=== PATIENT | female | born 1960 | race African-American/Black ===

== ENCOUNTER 2019-01-10 15:08 | Inpatient (IN) | payer SELFPAY ==
[~2019-01-10] VITALS: Ht 177.8 cm; Wt 90.3 kg
--- NOTE | 2019-01-10 15:11 | NUR ---
GERARD FROM HOME C/O DIZZINESS AND LIGHT HEADEDNESS STARTED LAST NIGHT, SEEN AT URGENT CARE. TO ER BED 9, HOOKED TO MONITOR, CHANGED TO HOSPITAL GOWN, AWAITING MD HOPPER
--- NOTE | 2019-01-10 15:27 | NUR ---
DR XIE AT BEDSIDE
[2019-01-10] MEDS ORDERED: MECLIZINE HCL 25 MG TABLET PO ONE (15:30)
[2019-01-10] MEDS ORDERED: PANTOPRAZOLE 40 MG VIAL IV ONE (15:30)
[2019-01-10] MEDS ORDERED: ONDANSETRON HCL/PF - ER 4 MG/2 ML VIAL IV ONE (15:30)
[2019-01-10] MEDS ORDERED: PANTOPRAZOLE 40 MG VIAL ONE (15:37)
[2019-01-10] MEDS ORDERED: MECLIZINE HCL 25 MG TABLET ONE (15:37)
[2019-01-10] MEDS ORDERED: ONDANSETRON HCL/PF 4 MG/2 ML VIAL ONE (15:37)
[2019-01-10 15:40] LABS: BASOPHILS % (AUTO) 0.8 % (0.0-2.0); EOSINOPHILS % (AUTO) 4.2 % (0.0-6.0); HEMATOCRIT 32 % (33-45); HEMOGLOBIN 10.5 g/dL (11.5-14.8); LYMPHOCYTES # (AUTO) 1.5 /CMM (0.8-4.8); LYMPHOCYTES % (AUTO) 28.2 % (20.0-44.0); MEAN CORPUSCULAR HGB CONC 33 g/dl (31.0-36.0); MEAN CORPUSCULAR VOLUME 100 fL (82-100); MONOCYTES # (AUTO) 0.3 /CMM (0.1-1.30); MONOCYTES % (AUTO) 5.1 % (2.0-12.0); NEUTROPHILS # (AUTO) 3.2 /CMM (1.8-8.9); NEUTROPHILS % (AUTO) 61.7 % (43.0-81.0); PLATELET COUNT (AUTO) 295 /CMM (150-450); WHITE BLOOD COUNT (AUTO) 5.2 K/uL (4.3-11.0)
--- NOTE | 2019-01-10 15:45 | NUR ---
FUNDING COORDINATOR AT BEDSIDE
[2019-01-10 16:20] LABS: CALCIUM, SERUM 8.9 mg/dL (8.5-10.1); CREATININE 1.4 mg/dL (0.6-1.3)
[2019-01-10 16:26] LABS: ALBUMIN 4.1 g/dL (3.4-5.0); BILIRUBIN,TOTAL 0.6 mg/dL (0.2-1.0); TOTAL PROTEIN, SERUM 7.9 g/dL (6.4-8.2)
[2019-01-10] MEDS ORDERED: METOCLOPRAMIDE HCL 10 MG/2 ML VIAL IV ONE (18:30)
[2019-01-10] MEDS ORDERED: ESCI10TA PO (18:35)
[2019-01-10] MEDS ORDERED: NEBI5TAB8 PO (18:35)
[2019-01-10] MEDS ORDERED: METOCLOPRAMIDE HCL 10 MG/2 ML VIAL ONE (18:36)
--- NOTE | 2019-01-10 19:15 | NUR ---
CALLED EITAN BONILLA PAGED
--- NOTE | 2019-01-10 19:23 | NUR ---
LUCITA LAIRD AT BEDSIDE
--- NOTE | 2019-01-10 19:33 | NUR ---
CALLED NURSING SUP FOR BED
--- NOTE | 2019-01-10 19:34 | NUR ---
REPORT GIVEN TO YUNIOR DE JESUS RN FOR KYM
[2019-01-10] MEDS ORDERED: ONDANSETRON HCL/PF 4 MG/2 ML VIAL IVP PRN (20:00)
[2019-01-10] MEDS ORDERED: HYDROCODONE/APAP 5/325MG 1 EACH TABLET PO PRN (20:00)
[2019-01-10] MEDS ORDERED: MORPHINE SULFATE INJ 2 MG/ML DISP.SYRIN IV PRN (20:00)
[2019-01-10] MEDS ORDERED: TEMAZEPAM 7.5 MG CAPSULE PO PRN (20:00)
[2019-01-10] MEDS ORDERED: ACETAMINOPHEN 325 MG TABLET PO PRN (20:00)
[2019-01-10] MEDS ORDERED: MAG HYDROX/AL HYDROX/SIMETH 30 ML UDC PO PRN (20:00)
--- NOTE | 2019-01-10 20:28 | NUR ---
REPORT GIVEN TO VERENICE CASEY FOR KYM.
[2019-01-10 21:00] VITALS: BP 154/90
--- NOTE | 2019-01-10 21:00 | NUR ---
IT SYSTEMS ADMINISTRATORSOFT METALS HAND ENGRAVER NOTES PATIENT CAME TO UNIT FROM ER VIA GURNEY, ACCOMPANIED BY 2 ER STAFF AND FAMILY MEMBERS. PATIENT IS ALERT, ORIENTED X 4. BREATHING EVEN AND UNLABORED. NOT IN ANY DISTRESS, SATURATING AT 98% ON ROOM AIR. IV ACCESS ON RAC G#18 INTACT AND PATENT, NO SIGNS OF INFILTRATION NOTED. TELE MONITOR IN PLACE- SINUS RHYTHM 70. PATIENT HAS NO SKIN ISSUES. BELONGINGS ACCOUNTED FOR BY ASSIGNED HUMAN RESOURCES COMPLIANCE MANAGER. ORIENTED TO CALL LIGHT- PLACED WITHIN EASY REACH. BED IN LOW, LOCKED POSITION. WILL CONTINUE TO MONITOR ACCORDINGLY.
[2019-01-10] MEDS: IV NS 0.9% 1,000 ML IV PRN (21:10)
[2019-01-10] MEDS: MECLIZINE HCL 12.5 MG TABLET PO SCH (21:21)
--- NOTE | 2019-01-10 23:00 | NUR ---
RN NOTES PATIENT C/O RIGHT SIDE ABDOMEN PAIN, 09/13. NORCO 5/325 GIVEN ORDERED. WILL CONTINUE TO MONITOR
[2019-01-10 23:51] VITALS: BP 132/83
[2019-01-11] MEDS ORDERED: PIPERACILLIN /TAZOBACTAM 3.375 G in IV D5W 50 ML IV SCH ×2
--- NOTE | 2019-01-11 01:15 | NUR ---
RN NOTES URINE SAMPLE OBTAINED
[2019-01-11 04:00] VITALS: BP 126/84
[2019-01-11 05:54] LABS: APPEARANCE,URINE CLOUDY (CLEAR); BILIRUBIN,URINE NEGATIVE (NEGATIVE); BLOOD, URINE TRACE-INTA Ery/uL (NEGATIVE); COLOR,URINE YELLOW (YELLOW); KETONES,URINE NEGATIVE (NEGATIVE); LEUKOCYTE ESTERASE ,URINE NEGATIVE (NEGATIVE); NITRITE, URINE NEGATIVE (NEGATIVE); PROTEIN,URINE 30 mg/dl (NEGATIVE); UGLUCOSE NEGATIVE (NEGATIVE); UROBILINOGEN,URINE 0.2 EU/dL (0.2)
[2019-01-11 06:01] LABS: BACTERIA,URINE Moderate /HPF (None Seen); RBC,URINE 0-2 /HPF (0-2); SQUAMOUS EPITHELIAL CELL,UR Few /HPF (None Seen); URINE AMORPHOUS URATE Many /HPF (None Seen); WBC,URINE 0-2 /HPF (0-3)
--- NOTE | 2019-01-11 06:23 | NUR ---
OPHTHALMIC PHOTOGRAPHER CLOSING NOTES PATIENT RESTING IN BED, ALERT, ORIENTED X 4. BREATHING EVEN AND UNLABORED. NOT IN ANY DISTRESS, SATURATING WELL. PERIPHERAL IV INFUSING AT 80ML/HR. TELE MONITOR IN PLACE- SINUS RHYTHM 69. NO COMPLAINTS AT THIS TIME. ALL NEEDS ATTENDED TO. CALL LIGHT WITHIN EASY REACH. BED IN LOW, LOCKED POSITION. WILL ENDORSE KYM TO ONCOMING RN
[2019-01-11 06:27] LABS: BASOPHILS % (AUTO) 0.1 % (0.0-2.0); EOSINOPHILS % (AUTO) 0.2 % (0.0-6.0); HEMATOCRIT 30 % (33-45); LYMPHOCYTES # (AUTO) 0.8 /CMM (0.8-4.8); LYMPHOCYTES % (AUTO) 19.7 % (20.0-44.0); MEAN CORPUSCULAR HGB CONC 33 g/dl (31.0-36.0); MEAN CORPUSCULAR VOLUME 101 fL (82-100); MONOCYTES # (AUTO) 0.2 /CMM (0.1-1.30); MONOCYTES % (AUTO) 5.4 % (2.0-12.0); NEUTROPHILS # (AUTO) 3.1 /CMM (1.8-8.9); NEUTROPHILS % (AUTO) 74.6 % (43.0-81.0); PLATELET COUNT (AUTO) 273 /CMM (150-450); RED BLOOD CELL COUNT(AUTO) 2.99 MIL/uL (4.0-5.2); WHITE BLOOD COUNT (AUTO) 4.2 K/uL (4.3-11.0)
[2019-01-11 06:38] LABS: ALBUMIN 3.8 g/dL (3.4-5.0); BILIRUBIN,TOTAL 0.5 mg/dL (0.2-1.0); CALCIUM, SERUM 8.7 mg/dL (8.5-10.1); CREATININE 1.3 mg/dL (0.6-1.3); PHOSPHORUS 3.3 mg/dL (2.5-4.9); POTASSIUM 3.9 mmol/L (3.5-5.1); TOTAL PROTEIN, SERUM 7.5 g/dL (6.4-8.2)
[2019-01-11 06:51] LABS: THYROID STIMULATING HORMONE 0.616 uIU/mL (0.358-3.74)
--- NOTE | 2019-01-11 07:17 | NUR ---
REPAIRER GENERAL OPENING NOTES PATIENT RECEIVED AWAKE AND RESTING IN BED IN NO ACUTE SIGNS OF DISTRESS. A/O X 4. ABLE TO MAKE NEEDS KNOWN, DENIES PAIN, DIZZINESS OR ANY DISCOMFORTS AT THIS TIME. ON ROOM AIR, BREATHING EVEN AND UNLABORED. ON TELE MONITORING WITH CURRENT READING OF SINUS RHYTHM WITH HR OF 70, NO C/O CARDIAC DISTRESS VOICED. IVF OF NS AT 80ML/HR INFUSING TO RAC G #18 PERIPHERAL LINE. CALL LIGHT WITHIN EASY REACH. BED IN LOW LOCKED POSITION WITH SR UP X2. WILL CONTINUE TO MONITOR PT ACCORDINGLY.
[2019-01-11] MEDS ORDERED: PANTOPRAZOLE 40 MG TABLET.DR PO SCH (07:30)
[2019-01-11 08:00] VITALS: BP 151/106
[2019-01-11] MEDS: MECLIZINE HCL 12.5 MG TABLET PO SCH ×3 (08:15→17:21)
[2019-01-11] MEDS ORDERED: METOPROLOL TARTRATE 25 MG TABLET PO SCH (09:00)
[2019-01-11] MEDS ORDERED: ESCITALOPRAM OXALATE (10 MG) 10 MG TABLET PO SCH (09:00)
[2019-01-11] MEDS: IV NS 0.9% 1,000 ML IV PRN (10:30)
--- NOTE | 2019-01-11 11:30 | NUR ---
M/S RN NOTES PATIENT RETURNED BACK FROM RADIOLOGY VIA WHEELCHAIR. RESTING IN BED WITH NO COMPLAINTS OF PAIN, N/V.
[2019-01-11 16:00] VITALS: BP 140/106
--- NOTE | 2019-01-11 18:53 | NUR ---
M/S RN NOTES PATIENT IS CURRENTLY RESTING IN BED WATCHING TV A/O x4. PATIENT HAS NO COMPLAINTS OF PAIN OR N/V. NO ACUTE DISTRESS NOTED. IV ON R AC G#18. SAFETY PRECAUTIONS ARE IN PLACE WITH BED IN LOWEST POSITION, LOCKED, AND CALL LIGHT WITHIN REACH. PATIENT BEING DISCHARGED TODAY, WAITING FOR FRIEND TO PICK HER UP. WILL ENDORSE ONCOMING SHIFT ABOUT KYM AND DISCHARGE.
--- NOTE | 2019-01-11 19:02 | NUR ---
M/S RN NOTES PATIENT DISCHARGED STABLE. ACCOMPANIED BY FRIEND PEDRO PABLO. ALL BELONGINGS WERE ACCOUNTED FOR AND WITH HER. GIVEN DISCHARGE PACKET AND EDUCATION PROVIDED. IV REMOVED AND MEDICAL IV BAND REMOVED WELL. BROUGHT DOWNSTAIRS VIA WHEELCHAIR WITH LORETO KUMAR.
== END 2019-01-11 19:00 | disposition home or self-care (01) | DRG 684 ==
LOC: ER 15:10 → TELE 20:25 → MED 01-11 09:16
PROVIDERS: ADMIT Nurse Practitioner Acute Care
DX: N17.0 Acute kidney failure with tubular necrosis (principal); D63.8 Anemia in other chronic diseases classified elsewhere; I10 Essential (primary) hypertension; R73.9 Hyperglycemia, unspecified; F32.9 Major depressive disorder, single episode, unspecified; E86.0 Dehydration; Z79.899 Other long term (current) drug therapy
CPT/HCPCS: 36415; 70450-TC; 70551-TC; 76705-TC; 80053-TC; 80061-TC; 81000-TC; 83735-TC; 84100-TC; 84443-TC; 84484-TC; 85025-TC; 87081-TC; 87086-TC; C9113; G0378; J2405; J2543; J2765; J7030; J7060; J8597

== ENCOUNTER 2023-09-07 15:19 | Emergency (ER) | payer BC ==
[~2023-09-07] VITALS: Ht 177.8 cm; Wt 69.9 kg
[~2023-09-07 15:19] MED LIST: ESCI10TA PO; NEBI5TAB8 PO
[2023-09-07 16:17] LABS: BASOPHILS % (AUTO) 0.6 % (0.0-2.0); EOSINOPHILS # (AUTO) 0.1 K/uL (0.0-0.7); EOSINOPHILS % (AUTO) 1.2 % (0.0-6.0); HEMATOCRIT 32 % (33-45); HEMOGLOBIN 10.3 g/dL (11.5-14.8); LYMPHOCYTES % (AUTO) 27.9 % (20.0-44.0); MEAN CORPUSCULAR HEMOGLOBIN 30 PG (26.0-33.0); MEAN CORPUSCULAR HGB CONC 32 g/dl (31.0-36.0); MEAN CORPUSCULAR VOLUME 93 fL (82-100); MONOCYTES # (AUTO) 0.2 K/uL (0.1-1.30); MONOCYTES % (AUTO) 2.5 % (2.0-12.0); NEUTROPHILS # (AUTO) 4.8 K/uL (1.8-8.9); NEUTROPHILS % (AUTO) 67.8 % (43.0-81.0); PLATELET COUNT (AUTO) 431 K/uL (150-450); RED BLOOD CELL COUNT(AUTO) 3.45 MIL/uL (4.0-5.2); RED CELL DISTRIBUTION WIDTH 13.5 % (11.5-15.0); WHITE BLOOD COUNT (AUTO) 7.1 K/uL (4.3-11.0)
[2023-09-07 16:34] LABS: CARBON DIOXIDE 19 mmol/L (21-32); CHLORIDE 105 mmol/L (98-107); CREATININE 1.8 mg/dL (0.6-1.3); GLUCOSE 114 mg/dL (74-106); POTASSIUM 4.1 mmol/L (3.5-5.1); SODIUM SERUM 136 mmol/L (136-145); UREA NITROGEN, BLOOD 27 mg/dL (7-18)
[2023-09-07 16:47] LABS: ALANINE AMINOTRANSFERASE 8 U/L (12-78); ALBUMIN 3.4 g/dL (3.4-5.0); ALKALINE PHOSPHATASE 123 U/L (46-116); ASPARTATE AMINOTRANSFERASE 10 U/L (15-37); BILIRUBIN,DIRECT 0.1 mg/dL (0.0-0.2); BILIRUBIN,TOTAL 0.4 mg/dL (0.2-1.0); NT-PRO BNP 1403 pg/mL (0-125); TOTAL PROTEIN, SERUM 7.6 g/dL (6.4-8.2)
[2023-09-07 17:31] VITALS: BP 127/66; TEMP 98.6; O2SAT 100
== END 2023-09-07 17:38 | disposition home or self-care (01) ==
LOC: ER 16:02
DX: R55 Syncope and collapse (principal); I10 Essential (primary) hypertension
CPT/HCPCS: 36415; 71045-TC; 80048-TC; 80076-TC; 83880; 84484-TC; 85025-TC